=== PATIENT | male | born 1970 | race Caucasian/White ===

== ENCOUNTER 2017-01-13 07:48 | Emergency (ER) | payer OTHER ==
[~2017-01-13] VITALS: Ht 182.9 cm; Wt 181.9 kg
--- NOTE | ~2017-01-13 | CR72 ---
[facility] A Service of [facility] RADIOLOGY TEXT RESULTS PATIENT: KANDIS HATFIELD LOCATION: [facility] : 74 UNIT #: [id number] AGE: [address]: Sean Baron MD SEX: M ORDER DR: [id number] [facility] [address] [place], [place] [address] [id number] MR#: [id number] Acc #: [id number] NAME: KANDIS HATFIELD : 1970 SEX: M STUDY DATE/TIME: 01/13/2017 8:21 UNIT: [facility] ROOM: STUDY DESCRIPTION: CR Chest Single View Portable Attending Physician: Sean Baron M.D. Ordering Physician: Sean Baron M.D. Primary Care Physician: Fabricio Zavala M.D. MEDICAL IMAGING REPORT This report is preliminary unless electronic signature is present EXAM Portable chest HISTORY Chest pain onset today. COMPARISON 05/31/2015 TECHNIQUE Single AP view of the chest was obtained. FINDINGS Cardiomegaly is again seen and unchanged. The aorta is tortuous and ectatic. Both lungs are clear with normal vascular markings. No pleural fluid is seen. IMPRESSION Cardiomegaly. No change from the previous exam. Dictated by... Bal Vazquez M.D. THIS IS AN ELECTRONICALLY VERIFIED REPORT Bal Vazquez M.D. at 01/14/2017 10:56 AM MERARI/rohan TD: 01/14/2017 06:08 JOB #: [id number] MEDICAL IMAGING REPORT Page 1 of 1 COPY
--- NOTE | ~2017-01-13 | EKG ---
PATIENT: KANDIS HATFIELD UNIT #: [id number] Ventricular Rate: 96 BPM Atrial Rate: 96 BPM P-R Interval: 198 ms QRS Duration: 82 ms Q-T Interval: 332 ms QTC Calculation(Bezet): 419 ms P [place]: 31 degrees Calculated R [place]: 19 degrees Calculated T [place]: 40 degrees Diagnosis Line: Normal sinus rhythm Diagnosis Line: Normal ECG Diagnosis Line: When compared with ECG of 03-DEC-2015 22:50, Diagnosis Line: No significant change was found Diagnosis Line: Confirmed by ANGEL SANDRA MD ([id number]) on Diagnosis Line: 01/13/2017 3:55:37 PM INTERPRETING MD: JEANNE
[~2017-01-13 07:48] MED LIST: ACTOS PO; ALB/IPRATROPIUM/1 EA INH; AMARYL; BACTRIM DS TABL1 TA1 PO; CIPRO PO; CLINDAMYCIN HC300 MG PO; DICLOFENAC PO; FLEXERIL10 MG PO; GLUCOPHAGE XR750 MG PO; HUMULOG INSULIN SQ; HYDROCODON-ACE1 EAC7 PO; INVOKANA100 MG PO; JANUVIA25 MG; JARDIANCE10 MG PO; LANTUS100 U/ML; LIPITOR PO; LISINOPRIL PO; LISINOPRIL-HCTZ1 T14 PO; ORUDIS75 M1 PO; PLAVIX PO; VOLTAREN-XR100 M1 PO; VOLTAREN50 MG PO; ZESTORETIC PO; ZOFRAN ODT4 MG PO
[2017-01-13 08:50] LABS: POC - CKMB <1.0 ng/mL (0.0-7.9); POC - TROPONIN <0.05 ng/mL (<=0.05)
[2017-01-13 08:59] LABS: BASOPHIL# 0.1 X10e3 (0-0.3); EOSINOPHIL# 0.2 X10e3 (0-0.7); EOSINOPHIL% 2.5 % (0.0-7.0); HEMATOCRIT 43.8 % (38.0-50.0); HEMOGLOBIN 14.7 gm/dL (13.0-16.0); LYMPHOCYTE# 2.2 X10e3 (1.0-3.5); LYMPHOCYTE% 33.1 % (17.0-45.0); MEAN CELL VOLUME 88.4 FL (83-96); MEAN CORPUSCULAR HEMOGLOBIN 29.6 PG (28-34); MEAN CORPUSCULAR HGB CONC 33.5 g/dL (30-36); MEAN PLATELET VOLUME 10.1 FL (6.5-11.5); MONOCYTE# 0.8 X10e3 (0-1.0); MONOCYTE% 11.2 % (3.0-12.0); NEUTROPHIL# 3.5 X10e3 (1.5-7.1); NEUTROPHIL% 52.2 % (40-75); PLATELET COUNT 209 X10e3 (140-420); RED BLOOD COUNT 4.96 X10e (3.90-5.60); RED CELL DISTRIBUTION WIDTH 13.7 % (11.0-15.5); WHITE BLOOD COUNT 6.8 X10e3 (4.0-10.5)
[2017-01-13 09:01] LABS: DIFF IND NO
[2017-01-13 09:10] LABS: PARTIAL THROMBOPLASTIN TIME 27.2 SECONDS (23.5-31.3); PROTHROMBIN TIME (PATIENT) 10.5 SECONDS (10.0-11.7)
[2017-01-13 09:21] LABS: ALBUMIN SERUM 4.1 g/dL (3.5-5.0); BILIRUBIN, DIRECT 0.1 mg/dL (0.0-0.2); BILIRUBIN,INDIRECT 0.6 mg/dL (0.0-0.9); BILIRUBIN,TOTAL 0.7 mg/dL (0.2-2.0); CALCIUM SERUM 9.3 mg/dL (8.4-10.2); GLOM FILT RATE Estimated 91.1 mL/min (>60); POTASSIUM 4.7 mmol/L (3.5-5.1); PROTEIN TOTAL SERUM 7.7 g/dL (6.0-8.3)
[2017-01-13 10:28] LABS: POC - CKMB 3.1 ng/mL (0.0-7.9); POC - TROPONIN <0.05 ng/mL (<=0.05)
== END 2017-01-13 11:28 | disposition home or self-care (01) ==
LOC: CED 07:48
PROVIDERS: Emergency Medicine
DX: R07.89 Other chest pain (principal); E11.9 Type 2 diabetes mellitus without complications; I10 Essential (primary) hypertension; Z88.0 Allergy status to penicillin; Z79.4 Long term (current) use of insulin; Z79.899 Other long term (current) drug therapy
CPT/HCPCS: 36415; 71010; 80048; 80076; 82553; 84484; 85025; 85379; 85610; 85730; 93005; 99285